=== PATIENT | male | born 1935 | race Two or more races ===

== ENCOUNTER 2021-04-23 12:43 | Day surgery (SDC) | payer MEDICARE, BC ==
[~2021-04-23] VITALS: Ht 170.2 cm; Wt 73.5 kg
[2021-04-23] MEDS ORDERED: IOHEXOL-350 100 ML VIAL IV ONE (13:43)
[2021-04-23] MEDS ORDERED: NITROGLYCERIN 0.4 MG/TAB BOTTLE ONE (13:43)
[2021-04-23 13:51] VITALS: BP 121/50
[2021-04-23] MEDS ORDERED: METOPROLOL TARTRATE INJ 5 MG/5 ML AMPUL IVP PRN (14:00)
[2021-04-23] MEDS ORDERED: NITROGLYCERIN 0.4 MG/TAB BOTTLE SL ONE (14:00)
--- NOTE | 2021-04-23 14:03 | NUR ---
Report given to [id number]
== END 2021-04-23 23:59 | disposition home or self-care (01) ==
LOC: CT 12:43
PROVIDERS: ATTEND Internal Medicine Interventional Cardiology
DX: I25.10 Atherosclerotic heart disease of native coronary artery without angina pectoris (principal); R91.8 Other nonspecific abnormal finding of lung field
CPT/HCPCS: 75574; Q9967